=== PATIENT | male | born 1955 | race Caucasian/White ===

== ENCOUNTER → 2025-04-07 13:38 | Outpatient (REF) | payer MEDICARE, SELFPAY | LOC: DHSLP 13:38 | PROVIDERS: ATTENDING PHYSICIAN Internal Medicine Critical Care Medicine; FAMILY PHYSICIAN Internal Medicine Critical Care Medicine | DX: G47.30 Sleep apnea, unspecified (principal); R06.83 Snoring | CPT/HCPCS: 95800 ==